=== PATIENT | male | born 1935 | race Caucasian/White ===

== ENCOUNTER 2018-10-22 19:56 | Emergency (ER) | payer MEDICARE ==
[~2018-10-22] VITALS: Ht 167.6 cm; Wt 83.9 kg
[2018-10-22 19:56] VITALS: BP_SYST 133
[2018-10-22] MEDS ORDERED: NACL 0.9% 1,000 ML IV ONE (20:00)
[2018-10-22] MEDS ORDERED: DIGO125T79 PO (20:06)
[2018-10-22] MEDS ORDERED: AMLO5TAB4 PO (20:07)
[2018-10-22] MEDS ORDERED: LIP10 PO (20:08)
[2018-10-22] MEDS ORDERED: ATEN50TA PO (20:08)
[2018-10-22] MEDS ORDERED: WARF2TAB2 PO ×2 (20:08→20:13)
[2018-10-22] MEDS ORDERED: LISI-600 PO (20:09)
[2018-10-22 20:29] LABS: HEMATOCRIT 38.1 % (36-54); HEMOGLOBIN 12.8 g/dL (14.0-18.0); MEAN CORPUSCULAR HEMOGLOBIN 31 pg (27-31); MEAN CORPUSCULAR VOLUME 92 fL (79.0-98.0); RED BLOOD CELL COUNT(AUTO) 4.15 MIL/uL (4.2-6.2)
[2018-10-22 20:30] LABS: MEAN CORPUSCULAR HGB CONC 34 % (32-36); PLATELET COUNT (AUTO) 267 K/uL (130-430); RED CELL DISTRIBUTION WIDTH 13.6 % (9.0-15.0)
[2018-10-22 20:31] LABS: ANION GAP 6 (5-15); CALCIUM 8.5 mg/dL (8.4-11.0); CHLORIDE 94 mmol/L (98-107); CREATININE 0.82 mg/dL (0.55-1.30); GLUCOSE 131 mg/dL (70-99); POTASSIUM 3.9 mmol/L (3.5-5.1); SODIUM SERUM 129 mmol/L (136-145); UREA NITROGEN, BLOOD 13 mg/dL (8-21)
[2018-10-22 20:34] LABS: INR 2.1 (0.80-1.20); PROTHROMBIN TIME 20.6 SECS (9.5-12.5)
[2018-10-22 20:38] LABS: ALANINE AMINOTRANSFERASE 30 U/L (12-78); ALBUMIN 3.6 g/dL (3.4-4.8); ASPARTATE AMINOTRANSFERASE 20 U/L (10-37); TOTAL BILIRUBIN 0.2 mg/dL (0.0-1.0)
[2018-10-22 20:40] LABS: BAND % (MANUAL) 3 % (0-6); BASOPHILS % (MANUAL) 0 % (0-2); EOSINOPHILS % (MANUAL) 1 % (0-7); LYMPHOCYTES % (MANUAL) 14 % (20-46); MONOCYTES % (MANUAL) 5 % (0-11)
[2018-10-22 23:47] LABS: BILIRUBIN,URINE NEGATIVE (NEGATIVE); BLOOD, URINE NEGATIVE (NEGATIVE); CLARITY/URINE CLEAR (CLEAR); COLOR,URINE YELLOW (YELLOW); GLUCOSE,URINE NEGATIVE (NEGATIVE); KETONES,URINE NEGATIVE (NEGATIVE); LEUKOCYTE ESTERASE ,URINE NEGATIVE (NEGATIVE); NITRITE, URINE NEGATIVE (NEGATIVE); PH,URINE 5.5 (5.0-8.0); PROTEIN URINE NEGATIVE (NEGATIVE); UROBILINOGEN,URINE 0.2 (0.2-1.0)
[2018-10-23 00:28] VITALS: BP_SYST 134
== END 2018-10-23 00:31 | disposition home or self-care (01) ==
LOC: SED 19:56
DX: R55 Syncope and collapse (principal); R19.7 Diarrhea, unspecified; I48.91 Unspecified atrial fibrillation; I10 Essential (primary) hypertension; Z88.1 Allergy status to other antibiotic agents; Z79.899 Other long term (current) drug therapy
CPT/HCPCS: 36415; 70450; 71045; 74176; 80053; 81003; 83880; 84484; 85007; 85027; 85610; 85730; 87040; 93005; 96360; 99284; J7030